=== PATIENT | male | born 1960 | race Caucasian/White ===

== ENCOUNTER 2016-12-15 07:15 | Emergency (ER) | payer SELFPAY ==
[~2016-12-15] VITALS: Ht 182.9 cm; Wt 99.3 kg
[~2016-12-15 07:15] MED LIST: OMEP20TA PO
[2016-12-15 07:17] VITALS: BP 146/85; PULSE 77; RESP 16; TEMP 98.1; O2SAT 98
[2016-12-15 07:41] LABS: BLOOD, URINE SMALL (NEG); KETONE, URINE TRACE mg/dL (NEG); NITRITE,URINE NEG (NEG); PH, URINE 5.5 (5.0-8.5)
[2016-12-15 07:43] LABS: GLUCOSE,URINE 1000 OR GREATER mg/dL (NEG); METHOD OF COLLECTION CLEAN CATCH; URINE COLOR YELLOW (YELLW/STRAW)
[2016-12-15 07:45] LABS: COMMENT (UR) CULT NOT INDICATED; CULTURE IF INDICATED CULT NOT INDICATED; SQUAMOUS EPITHELIAL CELL URINE 0-5 /hpf (0-5)
[2016-12-15] MEDS ORDERED: GABA600T PO (07:56)
[2016-12-15] MEDS ORDERED: SODIUM CHLORIDE 0.9% FLUSH 10 ML FLUSH IV FLUSH PRN (08:00)
--- NOTE | 2016-12-15 08:13 | PD ---
HPI Chief Complaint: Complaint Time Seen by Provider: 07:48 Travel History International Travel<30 days: No Contact w/Intl Traveler<30days: No Traveled to known affect area: No History of Present Illness HPI This is a 56-year-old male presents emergency department with painless hematuria since last night. The patient states he saw a lot of blood in his urine and became alarmed and decided to come in this morning. Denies any flank pain belly pain weight loss smoking history or dysuria. States it never happened to him before. PFSH Past Medical History Hx Anticoagulant Therapy: No Arthritis: Yes (back) Asthma: No Blood Disorders: No Cancer: Yes (BASAL CELL NOSE) Cardiac Catheterization: Yes Cardiovascular Problems: No High Cholesterol: No Chest Pain: Yes COPD: No Cerebrovascular Accident: No Coronary Artery Disease: No Diabetes: No Diminished Hearing: No Endocrine: No Gastrointestinal Disorders: Yes (GERD) GERD: Yes Genitourinary: No Hypertension: No Immune Disorder: No Implanted Vascular Access Dvce: No Medical other: Yes (chronic lower back pain, recent epidural injections) Musculoskeletal: No Neurologic: No Psychiatric: No Reproductive: No Respiratory: No Immunizations Current: Yes Myocardial Infarction: No Tetanus Vaccination: < 5 Years Influenza Vaccination: No Past Surgical History Cardiac Surgery: Yes (CARDIAC CATH) Other Surgery: No Social History Alcohol Use: Yes (10 BEERS A NITE) Tobacco Use: No Substance Use: No Allergies-Medications (Allergen,Severity, Reaction): Coded Allergies: codeine (Unverified Allergy, Mild, Nausea/Vomiting, 12/15/16) Reported Meds & Prescriptions Reported Meds & Active Scripts Active Metformin (Metformin HCl) 500 Mg Tab 500 Mg PO BIDPC With meals Keflex (Cephalexin) 500 Mg Cap 500 Mg PO Q6H 7 Days Reported Gabapentin 600 Mg Tab 600 Mg PO TID Review of Systems Except as stated in HPI: all other systems reviewed are Neg Physical Exam Narrative GENERAL: Well-developed well-nourished no obvious distress, smells of cigarette smoke states is from his girlfriend. SKIN: Focused skin assessment warm/dry. HEAD: Atraumatic. Normocephalic. EYES: Pupils equal and round. No scleral icterus. No injection or drainage. ENT: No nasal bleeding or discharge. Mucous membranes pink and moist. NECK: Trachea midline. No JVD. CARDIOVASCULAR: Regular rate and rhythm. No murmur appreciated. RESPIRATORY: No accessory muscle use. Clear to auscultation. Breath sounds equal bilaterally. GASTROINTESTINAL: Abdomen soft, non-tender, nondistended. Hepatic and splenic margins not palpable. No CVA tenderness. No palpable mass. MUSCULOSKELETAL: No obvious deformities. No clubbing. No cyanosis. No edema. NEUROLOGICAL: Awake and alert. No obvious cranial nerve deficits. Motor grossly within normal limits. Normal speech. PSYCHIATRIC: Appropriate mood and affect; insight and judgment normal. Data Data Last Documented VS Vital Signs Date Time Temp Pulse Resp B/P Pulse Ox O2 Delivery O2 Flow Rate FiO2 12/15/16 07:23 76 16 12/15/16 07:17 98.1 146/85 98 Orders Urinalysis - C+S If Indicated (12/15/16 07:26) Complete Blood Count With Diff (12/15/16 07:49) Comprehensive Metabolic Panel (12/15/16 07:49) Prothrombin Time / Inr (Pt) (12/15/16 07:49) Act Partial Throm Time (Ptt) (12/15/16 07:49) Iv Access Insert/Monitor (12/15/16 07:49) Ecg Monitoring (12/15/16 07:49) Oximetry (12/15/16 07:49) Sodium Chloride 0.9% Flush (Ns Flush) (12/15/16 08:00) Ct Abd/Pel W Iv Contrast(Rout) (12/15/16 ) Iohexol 350 Inj (Omnipaque 350 Inj) (12/15/16 09:03) Labs Laboratory Tests Test 12/15/16 12/15/16 07:33 08:05 Urine Collection Type CLEAN CATCH Urine Color YELLOW Urine Turbidity CLEAR Urine pH 5.5 Urine Specific Kuna 1.035 Urine Protein NEG mg/dL Urine Glucose (UA) 1000 OR GREATER mg/dL Urine Ketones TRACE mg/dL Urine Occult Blood SMALL Urine Nitrite NEG Urine Bilirubin NEG Urine Leukocyte Esterase NEG Urine RBC 4-9 /hpf Urine Squamous Epithelial 0-5 /hpf Cells Microscopic Urinalysis Comment CULT NOT INDICATED Urine Collection Time 07:33 White Blood Count 5.3 TH/MM3 Red Blood Count 5.01 MIL/MM3 Hemoglobin 15.2 GM/DL Hematocrit 44.6 % Mean Corpuscular Volume 89.0 FL Mean Corpuscular Hemoglobin 30.5 PG Mean Corpuscular Hemoglobin 34.2 % Concent Red Cell Distribution Width 11.8 % Platelet Count 204 TH/MM3 Mean Platelet Volume 10.0 FL Neutrophils (%) (Auto) 39.7 % Lymphocytes (%) (Auto) 49.4 % Monocytes (%) (Auto) 7.7 % Eosinophils (%) (Auto) 2.6 % Basophils (%) (Auto) 0.6 % Neutrophils # (Auto) 2.1 TH/MM3 Lymphocytes # (Auto) 2.7 TH/MM3 Monocytes # (Auto) 0.4 TH/MM3 Eosinophils # (Auto) 0.1 TH/MM3 Basophils # (Auto) 0.0 TH/MM3 CBC Comment DIFF FINAL Differential Comment Prothrombin Time 11.0 SEC Prothromb Time International 1.0 RATIO Ratio Activated Partial 25.4 SEC Thromboplast Time Sodium Level 136 MEQ/L Potassium Level 4.0 MEQ/L Chloride Level 104 MEQ/L Carbon Dioxide Level 25.2 MEQ/L Anion Gap 7 MEQ/L Blood Urea Nitrogen 8 MG/DL Creatinine 0.85 MG/DL Estimat Glomerular Filtration 93 ML/MIN Rate Random Glucose 277 MG/DL Calcium Level 9.0 MG/DL Total Bilirubin 0.6 MG/DL Aspartate Amino Transf 35 U/L (AST/SGOT) Alanine Aminotransferase 58 U/L (ALT/SGPT) Alkaline Phosphatase 86 U/L Total Protein 7.3 GM/DL Albumin 3.7 GM/DL MDM Medical Decision Making Medical Screen Exam Complete: Yes Emergency Medical Condition: Yes Differential Diagnosis UTI, hematuria, kidney stone, nephritic syndrome. Narrative Course Patient roomed in the emergency department, his labs are reassuring and has trace hematuria in his urine. CAT scan of his abdomen was pursued and does show diverticulosis without diverticulitis and a left adrenal nodule. Both the results were discussed the patient and recommended interim follow-up imaging with primary care physician or the [facility]. He verbalized understanding and agreement. He denied any weight loss. Discussed with him cessation of dipping and all the adverse health outcomes that, with tobacco usage. He is stable for discharge at this time. We'll place on empiric antibiotics for possibility of infection causing his hematuria though this is unlikely and discussed that he needs to follow up with urologist for consideration of cystoscopy Finally I discussed with the patient his hyperglycemia on labs today and previously undiagnosed diabetes. He states he was borderline in the past but was managed with diet. He has not had anything to eat since last night. This single sugar therefore isn't diagnostic for diabetes. He will be started on metformin and discussion of the risks benefits, and 11 discussed the need for follow-up with the [facility] for further workup. Last 24 hours Impressions Abdomen/Pelvis CT 12/15/16 0000 Signed Impressions: Service Date/Time: Thursday, December 15, 2016 08:47 - CONCLUSION: 1. Extensive diverticulosis without diverticulitis. 2. Moderate hepatic steatosis. 3. Left adrenal nodule measuring 1.3 cm cannot be classified as a typical adrenal adenoma. 4. No hydronephrosis or renal mass. Aakash Thakur MD Diagnosis Primary Impression: Hematuria Additional Impressions: New onset type 2 diabetes mellitus Adrenal mass Referrals: Jb Johnson MD [facility] Med/Other Pt SpecificInfo: Prescription(s) given Scripts Metformin 500 Mg [id number] Mg PO BIDPC #60 TAB Ref 0 With meals Prov:Savage Solomon MD 12/15/16 Cephalexin (Keflex)500 Mg [id number] Mg PO Q6H 7 Days Ref 0 Prov:Savage Solomon MD 12/15/16 Disposition: 01 DISCHARGE HOME Condition: Stable Savage Solomon MD Dec 15, 2016 08:13
[2016-12-15 08:14] LABS: AUTOMATED NEUTROPHIL # 2.1 TH/MM3 (1.8-7.7); BASOPHIL % 0.6 % (0.0-2.0); EOSINOPHIL # 0.1 TH/MM3 (0-0.4); EOSINOPHIL % 2.6 % (0.0-4.0); HEMATOCRIT 44.6 % (39.0-51.0); HEMO FLAGS DIFF FINAL; LYMPH % 49.4 % (9.0-44.0); LYMPHOCYTE # 2.7 TH/MM3 (1.0-4.8); MEAN CORPUSCULAR HEMOGLOBIN 30.5 PG (27.0-34.0); MEAN CORPUSCULAR HGB CONC 34.2 % (32.0-36.0); MONO % 7.7 % (0.0-8.0); NEUT % 39.7 % (16.0-70.0); PLATELET COUNT 204 TH/MM3 (150-450); RED BLOOD COUNT 5.01 MIL/MM3 (4.50-5.90); RED CELL DISTRIBUTION WIDTH 11.8 % (11.6-17.2); WHITE BLOOD COUNT 5.3 TH/MM3 (4.0-11.0)
[2016-12-15 08:25] LABS: CHLORIDE 104 MEQ/L (98-107); SODIUM (NA) 136 MEQ/L (136-145)
[2016-12-15 08:29] LABS: ANION GAP 7 MEQ/L (5-15); APTT (PATIENT) 25.4 SEC (24.3-30.1); BICARBONATE 25.2 MEQ/L (21.0-32.0); BLOOD UREA NITROGEN 8 MG/DL (7-18)
[2016-12-15 08:32] LABS: ALT (GPT) 58 U/L (12-78); AST (GOT) 35 U/L (15-37); GLOMERULAR FILTRATION RATE 93 ML/MIN (>89)
[2016-12-15 08:33] LABS: TOTAL BILIRUBIN ADULT 0.6 MG/DL (0.2-1.0)
[2016-12-15 08:35] LABS: ALKALINE PHOSPHATASE 86 U/L (45-117)
[2016-12-15] MEDS ORDERED: IOHEXOL 350 MG/ML 10 ML VIAL (for RAD DIAG) IV ONE (09:03)
--- NOTE | 2016-12-15 09:20 | RADRPT ---
EXAM DATE/TIME: 12/15/2016 08:47 [facility] COMPARISON: No previous studies available for comparison. INDICATIONS : Blood in urine. IV CONTRAST: 96 cc Omnipaque 350 (iohexol) IV ORAL CONTRAST: No oral contrast ingested. RADIATION DOSE: 16.93 CTDIvol (mGy) MEDICAL HISTORY : Gastroesophageal reflux disease. Carcinoma, basal cell. Chronic Low back pain. SURGICAL HISTORY : None. ENCOUNTER: Initial ACUITY: 1 day PAIN SCALE: 0/10 LOCATION: Bilateral abdomen TECHNIQUE: Volumetric scanning of the abdomen and pelvis was performed. Using automated exposure control and ad justment of the mA and/or kV according to patient size, radiation dose was kept as low as reasonably achievable to obtain optimal diagnostic quality images. DICOM format image data is available electro nically for review and comparison. FINDINGS: LOWER LUNGS: The visualized lower lungs are clear. LIVER: Decreased attenuation without lesion. There is no dilation of the biliary tree. No calcified gallst ones. SPLEEN: Normal size without lesion. PANCREAS: Within normal limits. KIDNEYS: Normal in size and shape. There is no mass, stone or hydronephrosis. ADRENAL GLANDS: Left degenerative gland contains small nodule measuring 1.3 cm. Right adrenal gland normal. VASCULAR: There is no aortic aneurysm. BOWEL/MESENTERY: Extensive diverticulosis of the descending and sigmoid colon. No significant inflammatory changes.. There is no free intraperitoneal air or fluid. ABDOMINAL WALL: Within normal limits. RETROPERITONEUM: There is no lymphadenopathy. BLADDER: No wall thickening or mass. No bladder calculi. REPRODUCTIVE: Within normal limits. INGUINAL: There is no lymphadenopathy. Small fat-containing inguinal hernias. MUSCULOSKELETAL: Within normal limits for patient age. CONCLUSION: 1. Extensive diverticulosis without diverticulitis. 2. Moderate hepatic steatosis. 3. Left adrenal nodule measuring 1.3 cm cannot be classified as a typical adrenal adenoma. 4. No hydronephrosis or renal mass. Aakash Thakur MD on December 15, 2016 at 9:08 Board Certified Radiologist. This report was verified electronically.
[2016-12-15] MEDS ORDERED: CEPH-460 PO (09:32)
[2016-12-15] MEDS ORDERED: METF500T PO (09:32)
== END 2016-12-15 09:46 | disposition home or self-care (01) ==
LOC: PHED 07:15
DX: R31.9 Hematuria, unspecified (principal); E11.9 Type 2 diabetes mellitus without complications; E27.8 Other specified disorders of adrenal gland; K76.0 Fatty (change of) liver, not elsewhere classified
CPT/HCPCS: 74177; 80053; 81001; 85025; 85610; 85730; 99285; Q9967

== ENCOUNTER 2017-06-22 09:50 | Emergency (ER) | payer SELFPAY ==
[~2017-06-22] VITALS: Ht 182.9 cm; Wt 99.8 kg
[~2017-06-22 09:50] MED LIST changes: +CEPH-460 PO; +GABA600T PO; +METF500T PO; -OMEP20TA PO
[2017-06-22 09:59] VITALS: BP 125/75; PULSE 87; RESP 16; TEMP 100; O2SAT 97
[2017-06-22] MEDS ORDERED: BENZ100 PO (11:43)
[2017-06-22] MEDS ORDERED: OSEL75 PO (11:43)
[2017-06-22] MEDS ORDERED: AZIT250T3 PO (11:43)
--- NOTE | 2017-06-22 11:43 | PD ---
HPI Chief Complaint: Cold / Flu Symptoms Time Seen by Provider: 10:57 Travel History International Travel<30 days: No Contact w/Intl Traveler<30days: No Traveled to known affect area: No History of Present Illness HPI This is a 56-year-old male here with flulike illness times one day. He is reporting fever, body aches, cough. He reports he has had mild URI like symptoms including cough for the last 1-2 months. Fever chills until yesterday. He is concerned he has the flu. He denies chest pain or shortness of breath. No neck or head pain. Symptom severity is moderate. No aggravating or alleviating factors. PFSH Past Medical History Hx Anticoagulant Therapy: No Arthritis: Yes (back) Asthma: No Blood Disorders: No Cancer: Yes (BASAL CELL NOSE) Cardiac Catheterization: Yes Cardiovascular Problems: No High Cholesterol: No Chest Pain: Yes COPD: No Cerebrovascular Accident: No Coronary Artery Disease: No Diabetes: No Diminished Hearing: No Endocrine: No Gastrointestinal Disorders: Yes (GERD) GERD: Yes Genitourinary: No Hypertension: No Immune Disorder: No Implanted Vascular Access Dvce: No Musculoskeletal: No Neurologic: Yes (neuropathy in feet) Psychiatric: No Reproductive: No Respiratory: No Immunizations Current: Yes Myocardial Infarction: No Influenza Vaccination: No ?: Not Past Surgical History Cardiac Surgery: Yes (CARDIAC CATH) Genitourinary Surgery: Yes (turp) Other Surgery: No Social History Alcohol Use: Yes (10 BEERS A NITE) Tobacco Use: No Substance Use: No Allergies-Medications (Allergen,Severity, Reaction): Coded Allergies: codeine (Unverified Allergy, Mild, Nausea/Vomiting, 06/22/17) Reported Meds & Prescriptions Reported Meds & Active Scripts Active Metformin (Metformin HCl) 500 Mg Tab 500 Mg PO BIDPC With meals Reported Gabapentin 600 Mg Tab 600 Mg PO BID Review of Systems Except as stated in HPI: all other systems reviewed are Neg General / Constitutional: Positive: Fever Eyes: No: Visual changes HENT: Positive: Sore Throat Cardiovascular: No: Chest Pain or Discomfort Respiratory: Positive: Cough Gastrointestinal: No: Abdominal Pain Musculoskeletal: Positive: Myalgias Skin: No Rash Physical Exam Narrative GENERAL: Alert 56-year-old male. Nontoxic appearing. SKIN: Warm and dry. No rash HEAD: Normocephalic. EYES: No injection or drainage. Ear/nose/throat: No TM erythema. Clear nasal discharge. Mild pharyngeal erythema without tonsillar hypertrophy or exudate. Uvula is midline. Airway is patent. NECK: Supple. No meningismus CARDIOVASCULAR: Regular rate and rhythm. No murmur RESPIRATORY: Breath sounds equal bilaterally. No accessory muscle use. GASTROINTESTINAL: Abdomen soft, non-tender, nondistended. MUSCULOSKELETAL: No cyanosis, or edema. BACK: No CVA tenderness. Data Data Last Documented VS Vital Signs Date Time Temp Pulse Resp B/P (MAP) Pulse Ox O2 Delivery O2 Flow Rate FiO2 06/22/17 09:59 100.0 87 16 125/75 (92) 97 MDM Medical Decision Making Medical Screen Exam Complete: Yes Emergency Medical Condition: Yes Differential Diagnosis Influenza, bronchitis, pneumonia Narrative Course This is a 56-year-old male here with flulike illness times one day. He is also reporting has had a cough for the last month prior to the symptoms. He he has fever and body aches. He is nontoxic appearing. Vital signs are stable. He' ll be treated for suspected influenza and covered with antibiotics for possible pneumonia. Diagnosis Primary Impression: Influenza Referrals: Primary Care Physician Additional Instructions: Tylenol and ibuprofen for fever. Azithromycin and Tamiflu as directed. Stay well hydrated. Scripts Benzonatate (Tessalon Perles) 100 Mg Cap 200 MG PO TID Y for COUGH, #14 CAP 0 Refills Prov: Rhiannon Nicholson 06/22/17 Oseltamivir (Tamiflu) 75 Mg Cap 75 MG PO BID for Mgmt Viral Infection for 5 Days, #10 CAP 0 Refills Prov: Rhiannon Nicholson 06/22/17 Azithromycin (Azithromycin) 250 Mg Tab 250 MG PO DIRECTED for Infection, #6 TAB 0 Refills Take 2 tabs (500 mg) on day 1 then 1 tab daily x 4 days. Prov: Rhiannon Nicholson 06/22/17 Disposition: DISCHARGE HOME Condition: Stable Rhiannon Nicholson Jun 22, 2017 11:43
== END 2017-06-22 11:50 | disposition home or self-care (01) ==
LOC: PHED 09:50 → PHEFT 11:50
DX: J11.1 Influenza due to unidentified influenza virus with other respiratory manifestations (principal); K21.9 Gastro-esophageal reflux disease without esophagitis; Z88.5 Allergy status to narcotic agent; Z79.84 Long term (current) use of oral hypoglycemic drugs; Z79.899 Other long term (current) drug therapy
CPT/HCPCS: 99283